=== PATIENT | male | born 1970 ===

== ENCOUNTER 2017-03-18 17:45 | Emergency (ER) | payer OTHER ==
[2017-03-18 18:02] VITALS: BMI 32.1
[2017-03-18 18:18] VITALS: BP 121/81; RESP 18
--- NOTE | 2017-03-18 19:22 | C.PDOC ---
History Of Present Illness 46 y/o male with htn, dm, cad, cholesterol with 4 days cough with white sputum, subjective fever, no sob, non smoker. no sick contacts. taking otc generic robitussin dm. Time Seen by Provider: 03/18/17 19:08 Chief Complaint (Nursing): Cough, Cold, Congestion History Per: Patient History/Exam Limitations: no limitations Onset/Duration Of Symptoms: Days (4) Current Symptoms Are (Timing): Still Present Location Of Pain: None Associated Symptoms: Cough, Sputum Ear Symptoms: Bilateral: None Past Medical History Reviewed: Historical Data, Nursing Documentation, Vital Signs Vital Signs: Last Vital Signs Temp 98.3 F 03/18/17 21:33 Pulse 90 03/18/17 21:33 Resp 18 03/18/17 21:33 BP 121/81 03/18/17 18:02 Pulse Ox 97 03/20/17 08:56 - Medical History PMH: CAD, Diabetes, HTN Surgical History: CABG (X1), Cholecystectomy Family History: States: Unknown Family Hx - Social History Hx Tobacco Use: No Hx Alcohol Use: Yes Hx Substance Use: No - Immunization History Hx Tetanus Toxoid Vaccination: No Hx Influenza Vaccination: No Hx Pneumococcal Vaccination: No Review Of Systems Constitutional: Positive for: Fever (subjective), Chills ENT: Negative for: Ear Pain, Nose Discharge, Throat Pain Cardiovascular: Negative for: Chest Pain, Palpitations Respiratory: Positive for: Cough, Sputum. Negative for: Shortness of Breath Gastrointestinal: Negative for: Nausea, Vomiting, Abdominal Pain Neurological: Negative for: Weakness, Numbness Physical Exam - Physical Exam Appears: Non-toxic, No Acute Distress Skin: Warm, Dry Head: Atraumatic, Normacephalic Eye(s): bilateral: Normal Inspection Ear(s): Bilateral: Normal Nose: No Discharge Oral Mucosa: Moist Neck: Supple Chest: Symmetrical, No Deformity, No Tenderness Cardiovascular: Rhythm Regular, No Murmur Respiratory: Rhonchi (scattered, clear with cough) Neurological/Psych: Oriented x3, Normal Speech, Normal Cognition ED Course And Treatment O2 Sat by Pulse Oximetry: 97 Medical Decision Making Medical Decision Makin46 y/o male with dm, htn, cad, with cough with white sputum and subjective fever x 4 days. no infiltrate noted on cxr, neg for influenza. will d/c with zpak for bronchitis. Disposition - Disposition Referrals: Alan Perales MD [Medical Doctor] - Disposition: HOME/ ROUTINE Disposition Time: 21:24 Condition: STABLE Additional Instructions: Take medications as prescribed. Tylenol or Motrin for fever or chills. Follow up wiht Dr Perales in 2-3 days. Return to ER for any worse symptoms. Prescriptions: Acetaminophen [Tylenol 325mg tab] 650 mg PO Q6 #30 tab Azithromycin [Zithromax] 250 mg PO DAILY #4 tab Benzonatate [Tessalon Perles] 100 mg PO TID #20 sgl Instructions: Acute Bronchitis (ED) Forms: General Discharge Instructions, [facility] ([place]), Work Excuse - Clinical Impression Clinical Impression: Bronchitis
[2017-03-18] MEDS ORDERED: Sodium Chloride 0.9% Inh Soln (3mL) UD INH ONE (19:24)
[2017-03-18 22:02] VITALS: PULSE 90; TEMP 98.3
--- NOTE | 2017-03-19 10:32 | RAD ---
HISTORY: cough fever COMPARISON: None available. TECHNIQUE: Chest PA and lateral FINDINGS: LUNGS: No focal consolidation. Please note that chest x-ray has limited sensitivity for the detection of pulmonary masses. PLEURA: No significant pleural effusion identified. No definite pneumothorax . CARDIOVASCULAR: The cardiomediastinal silhouette appears within normal limits of size. OSSEOUS STRUCTURES: No acute osseous abnormality identified. VISUALIZED UPPER ABDOMEN: Unremarkable. OTHER FINDINGS: None. IMPRESSION: No focal consolidation, significant pleural effusion, or definite pneumothorax identified.
[2017-03-20 08:56] VITALS: O2SAT 97
== END 2017-03-18 21:34 | disposition home or self-care (01) ==
LOC: C.ER 17:45
DX: J40 Bronchitis, not specified as acute or chronic (principal)